=== PATIENT | male | born 1985 | race Caucasian/White ===

== ENCOUNTER 2019-11-04 10:55 | Emergency (ER) | payer MEDICAID ==
[~2019-11-04] VITALS: Ht 172.7 cm; Wt 90.7 kg
[2019-11-04 11:02] VITALS: BP_SYST 158
--- NOTE | 2019-11-04 11:05 | NUR ---
PATIENT TO ER #1 [facility]; SUZY ADVISED OF ABP
--- NOTE | 2019-11-04 11:10 | NUR ---
PT BIB PD FOR OK TO BOOK C/O HTN.
--- NOTE | 2019-11-04 11:11 | NUR ---
ER at bedside examining patient.
[2019-11-04] MEDS ORDERED: cloNIDine HCL 0.1 MG TABLET PO ONE (11:15)
[2019-11-04 11:30] VITALS: BP_SYST 158
--- NOTE | 2019-11-04 11:30 | NUR ---
Patient given written and verbal discharge instructions and verbalizes understanding. ER MD discussed with patient the results and treatment provided. Patient in stable condition. ID arm band removed. NO Rx given. Patient educated on pain management and to follow up with PMD. Pain Scale 0 Opportunity for questions provided and answered. Medication side effect fact sheet provided.
== END 2019-11-04 11:30 ==
LOC: SED 10:55
DX: I10 Essential (primary) hypertension (principal)
CPT/HCPCS: 99283